=== PATIENT | male | born 1945 | race Two or more races ===

== ENCOUNTER 2017-02-24 10:35 | Emergency (ER) | payer MEDICAID ==
[~2017-02-24] VITALS: Ht 165.1 cm; Wt 56.7 kg
[2017-02-24 10:48] VITALS: BP 131/72
== END 2017-02-24 11:19 | disposition home or self-care (01) ==
LOC: ER 10:43
DX: Z76.0 Encounter for issue of repeat prescription (principal); Z94.0 Kidney transplant status; Z95.811 Presence of heart assist device
CPT/HCPCS: 99283; A4606; Z7610